=== PATIENT | male | born 1990 | race Caucasian/White ===

== ENCOUNTER 2016-12-08 23:21 | Emergency (ER) | payer OTHER ==
--- NOTE | 2016-12-09 01:50 | ED ORDER SUMMARY ---
..... Patient: SUZY GRADY OrderSheet [facility] VisitID: [id number] [place] [address] 26y, M Registration Date/Time: 12/08/2016 ORDER SHEET Weight: 79.3 kg Allergies: Ceclor GENERAL ORDERS: Ankle 3 or 4V Left Urgent (01:11 12/09/2016 Fernando MURRY) (Ack 1:15 AMcQuoid ER Tech1) (1:44 RFay) Splint (LE) (Left) (Air Splint) (01:47 12/09/2016 Fernando MURRY) (1:54 HSoule) Crutches (01:47 12/09/2016 Fernando MURRY) (1:54 HSoule) MEDICATION ORDERS: IV FLUIDS: ORDER SHEET NOTES: [Electronically signed by Elsa Mesa (04:07 12/09/2016)] [Electronically signed by Alex Stubbs MD (13:58 12/10/2016)] [Electronically locked/signed by Elsa Mesa (04:07 12/09/2016)]
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
--- NOTE | 2016-12-09 01:50 | ED ORDER SUMMARY ---
..... Patient: SUZY GRADY OrderSheet [facility] VisitID: [id number] [place] [address] 26y, M Registration Date/Time: 12/08/2016 ORDER SHEET Weight: 79.3 kg Allergies: Ceclor GENERAL ORDERS: Ankle 3 or 4V Left Urgent (01:11 12/09/2016 Fernando MURRY) (Ack 1:15 AMcQuoid ER Tech1) (1:44 RFay) Splint (LE) (Left) (Air Splint) (01:47 12/09/2016 Fernando MURRY) (1:54 HSoule) Crutches (01:47 12/09/2016 Fernando MURRY) (1:54 HSoule) MEDICATION ORDERS: IV FLUIDS: ORDER SHEET NOTES: [Electronically signed by Elsa Mesa (04:07 12/09/2016)] [Electronically signed by Alex Stubbs MD (13:58 12/10/2016)] [Electronically locked/signed by Elsa Mesa (04:07 12/09/2016)]
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
--- NOTE | 2016-12-09 07:54 | DIAGNOSTIC IMAGING REPORT ---
PROCEDURE: XR ANKLE 3 OR 4 VIEWS - LEFT INDICATION: PAIN TECHNIQUE: Four views of the left ankle. COMPARISON: None. FINDINGS: Normal mineralization. No fractures. Ankle mortise intact. Normal osseous alignment. No tibiotalar joint effusion. No suspicious soft-tissue calcification or radiodense foreign bodies. Achilles tendon appears grossly normal. IMPRESSION: 1. Intact left ankle.
--- NOTE | 2016-12-10 13:58 | ED DISCHARGE INSTRUCTIONS ---
Patient: SUZY GRADY General Instructions [facility] VisitID: [id number] [address], [place] [address] 26y, M Registration Date/Time: 12/08/2016 Recurrent left ankle pain and swelling. INSTRUCTIONS Apply ice for 15-20 minutes three times a day for one days followed by moist heat 15-20 minutes three times a day for one weeks until better. Don't apply ice directly to skin, don't use while asleep and don't use high setting on heating pad. Use crutches until better. Wear air splint until better. You may walk and bear weight as tolerated. Prescription Medications: Hydrocodone/APAP 5mg/325mg: take 1 to 2 orally every 6 hours as needed for pain. Dispense fifteen (15). No refills. Ibuprofen 600mg tablets: take 1 tablet orally every 8 hours as needed for pain. Dispense thirty (30). No refills. Understanding of the discharge instructions verbalized by patient. Discharge instructions reviewed with and understanding was verbalized by irrigator sprinkling system. Follow-up with: [facility], , , [address], , [place], [address] Follow up in one week. Call for an appointment. ADDITIONAL INFORMATION Crutch Walking Crutch Adjustment Make sure the crutches you use are adjusted to fit you. When you stand, there should be room to fit 2-3 fingers between the top of the crutch and your armpit. Your elbow should be slightly bent when holding the hand low heel builder. Crutch Walking: Place the crutches forward 12" in front of and 6" to the side of your feet. Lean your weight forward as you push down on the handgrips. Your weight should be on your hands and yourstrong leg, not your armpits . Let your body swing through, landing on the strong leg. Advance the crutches forward again. The crutch and the injured leg should move together. Going Up Steps: ("Up with the good") With both crutches on the same step as your feet, push down on the handgrips. Balancing with very light pressure on the weak leg, let your hands support your weight as you raise your strong leg onto the next higher step. Transfer all your weight to your strong leg (still bent) as you move the crutches up to the next step alongside the strong leg. With your weight evenly balanced on the two crutches and your strong leg, straighten your strong knee as you raise the weak leg up to the next step. Going Down Steps: ("Down with the bad") With both crutches on the same step as your feet, push down on the handgrips. With your weight evenly balanced on the two crutches and your strong leg, bend your strong knee as you lower the weak leg down to the next step. Let your strong leg support you (still bent) as you move the crutches down alongside the weak leg. Transfer your weight to your hands, balancing with very light pressure on the weak leg as you lower your strong leg alongside your weak leg. Aircast Traditional splints and casts for the foot and ankle protect the injury by preventing movement at the joints. However, many injuries heal better and faster if the injured joint can be moved, while protected at the same time. This is the reason for using an Aircast. There are two common type of AirCasts: 1) Air-Stirrup ankle splint This is often used to treat ankle sprains. It contains padded air cells in a plastic frame that fits into your shoe. This allows you to walk while preventing the ankle joint from rolling in or out causing re-injury. Ankle sprains can take 4-6 weeks to heal. Persons with severe injuries or over age 60 may require more time to heal. During that time, you are prone to re-injury by suddenly twisting your ankle again while the ligaments are still weak. When treating a sprain, the Air-Stirrup splint should be worn whenever walking for at least four weeks, or as long as you continue to have ankle pain. You should continue to wear it at least 6 weeks whenever running, playing sports or any activity where there is increased risk of re-injury. Talk to your doctor for specific advice about the treatment of your condition. 2) SP-Walker boot This is a short boot that provides support and protection to the foot and ankle while allowing you to walk. It contains padded air cells that provide compression and help circulation. It is used for both foot and ankle injuries - both sprains and minor fractures. Talk to your doctor for specific advice about the treatment of your condition. Air-Stirrup and SP-Walker are trademarks of [employer]. For more information about their products, see www.[email or web address]. You have been given the following additional information: Crutch Walking Aircast Splint And Boot You may walk and bear weight as tolerated. (Electronically signed by Alex Stubbs MD 12/10/2016 13:58)
--- NOTE | 2016-12-10 13:58 | ED MAR SUMMARY ---
..... Medication Administration Record [facility] [address], [place] [id number] Patient: SUZY GRADY Visit ID: [id number] 26y, M Weight: 79.3 kg Height/Length: 76 in BMI: 21.3 ALLERGIES: Ceclor
--- NOTE | 2016-12-10 13:58 | ED DISCHARGE INSTRUCTIONS ---
Patient: SUZY GRADY General Instructions [facility] VisitID: [id number] [address], [place] [address] 26y, M Registration Date/Time: 12/08/2016 Recurrent left ankle pain and swelling. INSTRUCTIONS Apply ice for 15-20 minutes three times a day for one days followed by moist heat 15-20 minutes three times a day for one weeks until better. Don't apply ice directly to skin, don't use while asleep and don't use high setting on heating pad. Use crutches until better. Wear air splint until better. You may walk and bear weight as tolerated. Prescription Medications: Hydrocodone/APAP 5mg/325mg: take 1 to 2 orally every 6 hours as needed for pain. Dispense fifteen (15). No refills. Ibuprofen 600mg tablets: take 1 tablet orally every 8 hours as needed for pain. Dispense thirty (30). No refills. Understanding of the discharge instructions verbalized by patient. Discharge instructions reviewed with and understanding was verbalized by process control engineer. Follow-up with: [facility], , , [address], , [place], [id number] Follow up in one week. Call for an appointment. ADDITIONAL INFORMATION Crutch Walking Crutch Adjustment Make sure the crutches you use are adjusted to fit you. When you stand, there should be room to fit 2-3 fingers between the top of the crutch and your armpit. Your elbow should be slightly bent when holding the hand shelver. Crutch Walking: Place the crutches forward 12" in front of and 6" to the side of your feet. Lean your weight forward as you push down on the handgrips. Your weight should be on your hands and yourstrong leg, not your armpits . Let your body swing through, landing on the strong leg. Advance the crutches forward again. The crutch and the injured leg should move together. Going Up Steps: ("Up with the good") With both crutches on the same step as your feet, push down on the handgrips. Balancing with very light pressure on the weak leg, let your hands support your weight as you raise your strong leg onto the next higher step. Transfer all your weight to your strong leg (still bent) as you move the crutches up to the next step alongside the strong leg. With your weight evenly balanced on the two crutches and your strong leg, straighten your strong knee as you raise the weak leg up to the next step. Going Down Steps: ("Down with the bad") With both crutches on the same step as your feet, push down on the handgrips. With your weight evenly balanced on the two crutches and your strong leg, bend your strong knee as you lower the weak leg down to the next step. Let your strong leg support you (still bent) as you move the crutches down alongside the weak leg. Transfer your weight to your hands, balancing with very light pressure on the weak leg as you lower your strong leg alongside your weak leg. Aircast Traditional splints and casts for the foot and ankle protect the injury by preventing movement at the joints. However, many injuries heal better and faster if the injured joint can be moved, while protected at the same time. This is the reason for using an Aircast. There are two common type of AirCasts: 1) Air-Stirrup ankle splint This is often used to treat ankle sprains. It contains padded air cells in a plastic frame that fits into your shoe. This allows you to walk while preventing the ankle joint from rolling in or out causing re-injury. Ankle sprains can take 4-6 weeks to heal. Persons with severe injuries or over age 60 may require more time to heal. During that time, you are prone to re-injury by suddenly twisting your ankle again while the ligaments are still weak. When treating a sprain, the Air-Stirrup splint should be worn whenever walking for at least four weeks, or as long as you continue to have ankle pain. You should continue to wear it at least 6 weeks whenever running, playing sports or any activity where there is increased risk of re-injury. Talk to your doctor for specific advice about the treatment of your condition. 2) SP-Walker boot This is a short boot that provides support and protection to the foot and ankle while allowing you to walk. It contains padded air cells that provide compression and help circulation. It is used for both foot and ankle injuries - both sprains and minor fractures. Talk to your doctor for specific advice about the treatment of your condition. Air-Stirrup and SP-Walker are trademarks of [employer]. For more information about their products, see www.[employer]. You have been given the following additional information: Crutch Walking Aircast Splint And Boot You may walk and bear weight as tolerated. (Electronically signed by Alex Stubbs MD 12/10/2016 13:58)
--- NOTE | 2016-12-10 13:58 | ED MAR SUMMARY ---
..... Medication Administration Record [facility] [address] [place], [place] [id number] Patient: SUZY GRADY Visit ID: [id number] 26y, M Weight: 79.3 kg Height/Length: 76 in BMI: 21.3 ALLERGIES: Ceclor
--- NOTE | 2016-12-10 13:58 | ED MED RECONCILIATION SUMMARY ---
Patient: SUZY GRADY Medication Reconciliation Report [facility] VisitID: [id number] [address] [place] [address] 26y, M Registration Date/Time: 12/08/2016 Weight: 79.3 kg Height/Length: 76 in. BMI: 21.3 ALLERGIES: Ceclor The patient's Home Medications are listed below: NONE. The source(s) of the original Home Medication information: patient The following Medications were given to the patient in the Emergency Department: None. The following Medications were prescribed to the patient: Hydrocodone/APAP 5mg/325mg: take 1 to 2 orally every 6 hours as needed for pain. Dispense fifteen (15). No refills. -- Alex Stubbs MD Ibuprofen 600mg tablets: take 1 tablet orally every 8 hours as needed for pain. Dispense thirty (30). No refills. -- Alex Stubbs MD
--- NOTE | 2016-12-10 13:58 | ED MED RECONCILIATION SUMMARY ---
Patient: SUZY GRADY Medication Reconciliation Report [facility] VisitID: [id number] [address] [place] [address] 26y, M Registration Date/Time: 12/08/2016 Weight: 79.3 kg Height/Length: 76 in. BMI: 21.3 ALLERGIES: Ceclor The patient's Home Medications are listed below: NONE. The source(s) of the original Home Medication information: patient The following Medications were given to the patient in the Emergency Department: None. The following Medications were prescribed to the patient: Hydrocodone/APAP 5mg/325mg: take 1 to 2 orally every 6 hours as needed for pain. Dispense fifteen (15). No refills. -- Alex Stubbs MD Ibuprofen 600mg tablets: take 1 tablet orally every 8 hours as needed for pain. Dispense thirty (30). No refills. -- Alex Stubbs MD
== END 2016-12-09 02:00 | disposition home or self-care (01) ==
LOC: ED SRH 23:21
DX: M25.572 Pain in left ankle and joints of left foot (principal); M25.472 Effusion, left ankle; X50.1XXA Overexertion from prolonged static or awkward postures, initial encounter; Y93.89 Activity, other specified; Y92.410 Unspecified street and highway as the place of occurrence of the external cause; Y99.8 Other external cause status; F17.210 Nicotine dependence, cigarettes, uncomplicated; Z88.8 Allergy status to other drugs, medicaments and biological substances